=== PATIENT | male | born 1970 | race African-American/Black ===

== ENCOUNTER 2022-08-29 07:59 | Inpatient (IN) ==
[2022-08-29] MEDS ORDERED: NITROGLYCERIN 2% OINT 1 INCH/GM PACK TOP STA (08:26)
[2022-08-29] MEDS ORDERED: FUROSEMIDE 100 MG/10 ML VIAL IV STA (08:26)
[2022-08-29 08:41] LABS: Basophils # 0.1 10*3/uL (0.0-0.2); Basophils % 0.6 % (0.0-0.8); Eosinophils # 0.2 10*3/uL (0.0-0.87); Eosinophils % 2.6 % (0.00-10.9); Hematocrit 48.6 VOL% (42.0-52.0); Hemoglobin 16.8 GM/DL (14.0-18.0); Immature Granulocytes % 0.3 %; Immature Granulocytes Absolute 0.03 #; Lymphocytes # 2.7 10*3/uL (1.4-4.0); Lymphocytes % 30.4 % (21.2-54.2); Mean Corpuscular HGB Conc 34.6 GM/DL (32-36); Mean Corpuscular Volume 105.9 FL (87-102); Monocytes # 0.8 10*3/uL (0.11-0.8); Monocytes % 9.3 % (1.7-12.7); Neutrophils % 56.8 % (38.7-73.9); Platelet Count 159 T/CUMM (130-400); Red Blood Count 4.59 MC/CUMM (3.8-5.5); Red Cell Distribution Width 12.1 % (9.3-17.3); White Blood Count 8.9 T/CUMM (4-12)
[2022-08-29 08:46] LABS: Albumin 3.5 G/DL (3.4-5.0); Bilirubin,Total 0.8 MG/DL (0.20-1.00); Total Protein 7.5 G/DL (6.4-8.2)
[2022-08-29 10:10] LABS: Barbiturates Screen,Urine Negative (Negative); Benzodiazepines Screen,Urine Negative (Negative); Cannabinoid Screen,Urine Negative (Negative); Opiate Screen,Urine Negative (Negative); Phencyclidine Screen,Urine Negative (Negative)
[2022-08-29] MEDS ORDERED: MORPHINE 2 MG/1 ML SYRINGE IV PRN (10:59)
[2022-08-29] MEDS ORDERED: GLUCAGON 1 MG VIAL IM PRN (10:59)
[2022-08-29] MEDS ORDERED: hydrALAZINE 20 MG/1 ML VIAL IV PRN (10:59)
[2022-08-29] MEDS ORDERED: ONDANSETRON 4 MG/2 ML VIAL IV PRN (10:59)
[2022-08-29] MEDS ORDERED: ACETAMINOPHEN 325 MG TABLET PO PRN (10:59)
[2022-08-29] MEDS ORDERED: SIMETHICONE CHEW 125 MG TABLET PO PRN (10:59)
[2022-08-29] MEDS ORDERED: DOCUSATE SODIUM 100 MG CAPSULE PO PRN (10:59)
[2022-08-29] MEDS ORDERED: NICOTINE 21 MG/24 HR PATCH TRANSDERM PRN (10:59)
[2022-08-29] MEDS ORDERED: chlordiazePOXIDE 10 MG CAPSULE PO PRN (11:02)
[2022-08-29] MEDS ORDERED: DEXTROSE 10% 250 ML BAG IV PRN (11:20)
[2022-08-29] MEDS: ALBUTEROL 2.5 MG/3 ML NEB RESP TX SCH ×2 (11:42→20:24)
[2022-08-29] MEDS: FOLIC ACID 1 MG TABLET PO SCH (11:56)
[2022-08-29] MEDS: SERTRALINE 25 MG TABLET PO SCH (11:56)
[2022-08-29] MEDS: THIAMINE 100 MG TABLET PO SCH ×2 (11:57→21:50)
[2022-08-29] MEDS: LOSARTAN 25 MG TABLET PO SCH ×2 (11:57→21:50)
[2022-08-29] MEDS: ENOXAPARIN 40 MG/0.4 ML SYRINGE SUBCUT SCH (12:00)
[2022-08-29] MEDS ORDERED: amLODIPine 5 MG TABLET PO SCH (12:30)
[2022-08-29] MEDS: INSULIN LISPRO 100 UNIT/ML SUBCUT SCH ×3 (12:33→21:50)
[2022-08-29] MEDS: ASPIRIN EC 81 MG TABLET PO SCH (12:56)
[2022-08-29] MEDS: FUROSEMIDE 40 MG/4 ML VIAL IV SCH (17:04)
[2022-08-30] MEDS: ALBUTEROL 2.5 MG/3 ML NEB RESP TX SCH ×4 (03:05→19:11)
[2022-08-30 05:36] LABS: Basophils # 0.1 10*3/uL (0.0-0.2); Basophils % 0.9 % (0.0-0.8); Eosinophils # 0.2 10*3/uL (0.0-0.87); Eosinophils % 3.8 % (0.00-10.9); Hematocrit 46.6 VOL% (42.0-52.0); Hemoglobin 15.8 GM/DL (14.0-18.0); Immature Granulocytes % 0.2 %; Immature Granulocytes Absolute 0.01 #; Lymphocytes # 2.1 10*3/uL (1.4-4.0); Lymphocytes % 33.4 % (21.2-54.2); Mean Corpuscular HGB Conc 33.9 GM/DL (32-36); Mean Corpuscular Volume 105.9 FL (87-102); Mean Platelet Volume 9.9 FL (9.6-12.0); Monocytes # 0.7 10*3/uL (0.11-0.8); Neutrophils % 50.7 % (38.7-73.9); Platelet Count 224 T/CUMM (130-400); Red Cell Distribution Width 11.8 % (9.3-17.3); White Blood Count 6.4 T/CUMM (4-12)
[2022-08-30 06:25] LABS: Albumin 3.1 G/DL (3.4-5.0); Bilirubin,Total 0.8 MG/DL (0.20-1.00); Calcium 8.5 MG/DL (8.5-10.1); Osmolality,Calculated 277.7 MOS/KG (273-304); Potassium 3.3 MMOL/L (3.5-5.1); Risk Ratio 4.4; Thyroid Stimulating Hormone 1.46 uIU/ml (0.358-3.74); Total Protein 7.3 G/DL (6.4-8.2); VLDL Cholesterol 18.2 MG/DL
[2022-08-30] MEDS ORDERED: POTASSIUM CHLORIDE 20 MEQ TABLET PO ONE (07:51)
[2022-08-30] MEDS: INSULIN LISPRO 100 UNIT/ML SUBCUT SCH ×4 (08:01→20:33)
[2022-08-30] MEDS: amLODIPine 10 MG TABLET PO SCH (09:19)
[2022-08-30] MEDS: PANTOPRAZOLE 40 MG TABLET PO SCH (09:19)
[2022-08-30] MEDS: SERTRALINE 25 MG TABLET PO SCH (09:19)
[2022-08-30] MEDS: FUROSEMIDE 40 MG/4 ML VIAL IV SCH ×2 (09:19→16:47)
[2022-08-30] MEDS: ASPIRIN EC 81 MG TABLET PO SCH (09:20)
[2022-08-30] MEDS: FOLIC ACID 1 MG TABLET PO SCH (09:20)
[2022-08-30] MEDS: THIAMINE 100 MG TABLET PO SCH ×2 (09:20→20:32)
[2022-08-30] MEDS: LOSARTAN 25 MG TABLET PO SCH ×2 (09:20→20:32)
[2022-08-30] MEDS: ENOXAPARIN 40 MG/0.4 ML SYRINGE SUBCUT SCH (13:35)
[2022-08-30] MEDS: POTASSIUM BICARB EFFERVESCENT 20 MEQ TAB.EFF PO SCH (21:37)
[2022-08-31] MEDS: ALBUTEROL 2.5 MG/3 ML NEB RESP TX SCH ×2 (01:42→07:31)
[2022-08-31 05:04] LABS: Calcium 8.5 MG/DL (8.5-10.1); Osmolality,Calculated 277.8 MOS/KG (273-304); Potassium 3.2 MMOL/L (3.5-5.1)
[2022-08-31] MEDS: POTASSIUM BICARB EFFERVESCENT 20 MEQ TAB.EFF PO SCH (06:31)
[2022-08-31] MEDS ORDERED: POTASSIUM CHLORIDE 20 MEQ TABLET PO ONE (09:15)
[2022-08-31] MEDS: INSULIN LISPRO 100 UNIT/ML SUBCUT SCH ×2 (09:52→12:09)
[2022-08-31] MEDS: THIAMINE 100 MG TABLET PO SCH (09:53)
[2022-08-31] MEDS: PANTOPRAZOLE 40 MG TABLET PO SCH (09:53)
[2022-08-31] MEDS: amLODIPine 10 MG TABLET PO SCH (09:53)
[2022-08-31] MEDS: LOSARTAN 25 MG TABLET PO SCH (09:53)
[2022-08-31] MEDS: FOLIC ACID 1 MG TABLET PO SCH (09:53)
[2022-08-31] MEDS: SERTRALINE 25 MG TABLET PO SCH (09:53)
[2022-08-31] MEDS: ASPIRIN EC 81 MG TABLET PO SCH (09:53)
[2022-08-31] MEDS: FUROSEMIDE 40 MG/4 ML VIAL IV SCH (10:00)
[2022-08-31] MEDS: ENOXAPARIN 40 MG/0.4 ML SYRINGE SUBCUT SCH (10:03)
[2022-08-31 12:05] VITALS: BP 126/88
== END 2022-08-31 12:26 | disposition home or self-care (01) | DRG 291 ==
LOC: N.ED 07:59 → N.EDINP 11:01 → SUATTDRO 11:01 → N.TELES 13:43
PROVIDERS: ADMIT Internal Medicine; ATTEND Internal Medicine